=== PATIENT | male | born 1980 | race Caucasian/White ===

== ENCOUNTER 2022-03-08 03:33 | Emergency (ER) | payer OTHER ==
[~2022-03-08] VITALS: Ht 172.7 cm; Wt 72.6 kg
[2022-03-08] MEDS ORDERED: INDAPAMIDE2.5 MG PO (03:51)
[2022-03-08] MEDS ORDERED: ZOLPIDEM TARTRA10 MG PO (03:51)
[2022-03-08] MEDS ORDERED: OMEPRAZOLE40 MG PO (03:51)
[2022-03-08] MEDS ORDERED: LOSARTAN POTASS25 MG PO (03:51)
[2022-03-08] MEDS ORDERED: PHENTERMINE H37.5 M1 PO (03:51)
[2022-03-08] MEDS ORDERED: FINASTERIDE1 MG PO (03:52)
[2022-03-08] MEDS ORDERED: KETO10TA2 PO (05:45)
== END 2022-03-08 05:53 | disposition home or self-care (01) ==
LOC: ER 03:33
DX: S93.491A Sprain of other ligament of right ankle, initial encounter (principal); S93.691A Other sprain of right foot, initial encounter; W10.8XXA Fall (on) (from) other stairs and steps, initial encounter; Y93.89 Activity, other specified; Y92.89 Other specified places as the place of occurrence of the external cause; M25.571 Pain in right ankle and joints of right foot